=== PATIENT | female | born 1970 | race Asian ===

== ENCOUNTER 2018-04-29 09:21 | Day surgery (SDC) | payer MEDICARE ==
--- NOTE | 2018-04-29 11:45 | Anesthesia Day of Surgery ---
Anesthesia Day of Surgery - Day of Surgery Patient Examined: Yes Patient H&P Reviewed: Yes Patient is NPO: Yes Beta Blockers: No Cardiac Clearance: No Pulmonary Clearance: No
[2018-04-29] MEDS ORDERED: DIPRIVAN 10 MG/ML IV ONE ×2 (11:46)
--- NOTE | 2018-04-29 11:46 | Anesthesia Consultation ---
Anesthesia Consult and Med Hx - Airway Anesthetic Teeth Evaluation: Good ROM Head & Neck: Adequate Mental/Hyoid Distance: Adequate Mallampati Class: Class III Intubation Access Assessment: Good - Pulmonary Exam CTA: Yes - Cardiac Exam Cardiac Exam: No Murmur - Pre-Operative Health Status ASA Pre-Surgery Classification: ASA4 Proposed Anesthetic Plan: MAC - Pulmonary Hx Smoking: No Hx Asthma: No Hx Respiratory Symptoms: No SOB: No COPD: No Home Oxygen Therapy: No Hx Pneumonia: No Hx Sleep Apnea: No - Cardiovascular System Hx Hypertension: Yes Hx Coronary Artery Disease: No Hx Heart Attack/AMI: No Hx Angina: No Hx Percutaneous Transluminal Coronary Angioplasty (PTCA): No Hx Cardia Arrhythmia: No Hx Pacemaker: No Hx Internal Defibrillator: No Hx Valvular Heart Disease: No Hx Heart Murmur: No Hx Peripheral Vascular Disease: No - Central Nervous System Hx Neuromuscular Disorder: No Hx Seizures: No CVA: No Hx Back Pain: No Hx Psychiatric Problems: No - Gastrointestinal Hx Ulcer: No Hx Gastroesophageal Reflux Disease: No - Endocrine Hx Renal Disease: Yes Hx End Stage Renal Disease: Yes Hx Cirrhosis: No Hx Liver Disease: No Hx Insulin Dependent Diabetes: No Hx Non-Insulin Dependent Diabetes: No Hx Thyroid Disease: No Hx Hypothyroidism: No Hx Hyperthyroidism: No - Hematic Hx Anemia: Yes Hx Sickle Cell Disease: No - Other Systems Hx Alcohol Use: No Hx Substance Use: No Hx Cancer: No Hx Obesity: No
[2018-04-29] MEDS ORDERED: NACL 0.9% 1000 ML 1,000 ML IV SCH (12:00)
[2018-04-29] MEDS ORDERED: WATER FOR IRRIG STERILE IR ONE (12:05)
--- NOTE | 2018-04-29 12:24 | Short Stay Summary ---
Short Stay Documentation Date of service: 04/29/18 Narrative H&P: The patient presents for surveillance colonoscopy due to a personal history of colon cancer with surgery a year ago. - History Past Medical History: cancer (colon cancer), dialysis, ESRD, hypertension, hyperlipidemia, other (Lupus) Past Surgical History: bowel surgery (Colon surgery 2010 for colon perforation, right hemicolectomy in 2017 for colon cancer. Hx renal transplant. Tubal ligation) Social history: no significant social history, lives with family, no smoking, no alcohol abuse - Allergies and Medications Current Medications: Allergies amoxicillin [From Augmentin] Allergy (Intermediate, Verified 04/27/18 13:31) Unknown clavulanic acid [From Augmentin] Allergy (Intermediate, Verified 04/27/18 13:31) Unknown latex Allergy (Intermediate, Verified 04/29/18 11:34) Shortness of Breath povidone-iodine [From Betadine] Allergy (Intermediate, Verified 04/29/18 11:34) Itching soap [From Betadine] Allergy (Intermediate, Verified 04/29/18 11:34) Swelling vancomycin Allergy (Intermediate, Verified 04/29/18 11:34) Itching CHILLS STER-STRIPS Allergy (Mild, Uncoded 04/29/18 11:34) Unknown BLISTERS STERI-STRIPS Allergy (Uncoded 04/29/18 11:34) Unknown BLISTERS Home Medications Medication Instructions Recorded Confirmed Last Taken Type Gabapentin 400 mg PO DAILY 04/27/18 04/29/18 04/27/18 History Metoprolol 75 mg PO BID 04/27/18 04/29/18 04/29/18 History NIFEdipine 60 mg PO BID 04/27/18 04/29/18 04/29/18 History Sensipar 30 mg PO DAILY 04/27/18 04/29/18 04/27/18 History hydrALAZINE 50 mg PO TID 04/27/18 04/29/18 04/29/18 History Eliquis 2.5 mg PO DAILY 04/29/18 04/29/18 04/21/18 History Sildenafil 20 mg PO TID 04/29/18 04/29/18 04/27/18 History Active Medications Sodium Chloride (Nacl 0.9% 1000 Ml) 1,000 mls @ 50 mls/hr IV DIRECT MARIA ESTHER Last Admin: 04/29/18 11:54 Dose: 50 mls/hr - Physical exam General appearance: no acute distress, well-nourished Integumentary: no rash, no growths, no abnormal pigmentation HEENT: Atraumatic, PERRLA, EOMI, Mucous membr. moist/pink Lungs: Clear to auscultation, Normal air movement Breasts: deferred Heart: Regular rate, Normal S1, Normal S2, No murmurs Gastrointestinal: normoactive bowel sounds, no tenderness, no distended, no masses, no organomegaly, no hepatomegaly, no splenomegaly, no obese Female Genitourinary: deferred Rectal Exam: normal exam-external/orifice, no mass Extremities: no ischemia, pulses intact, pulses symmetrical, No edema Neurological: Normal gait, Normal speech, Strength at 5/5 X4 ext, Normal tone, Sensation intact, Cranial nerves 3-12 NL - Brief post op/procedure progress note Date of procedure: 04/29/18 Procedure: see dictated report Estimated blood loss: none Pathology: none Condition: stable - Disposition Condition at discharge: Good Disposition: DC-01 TO HOME OR SELFCARE Short Stay Discharge Plan Activity: other (no driving for 24 hours) Weight Bearing Status: Full Weight Bearing Diet: renal Follow up with: BRIANA SOLIS MD [Primary Care Provider] - 7 Days
--- NOTE | 2018-04-29 12:33 | Operative Report ---
Operative Report Operative Report: Date of procedure: 04/29/2018 Preprocedure diagnosis: Personal history of colon cancer with surgery 1 year ago. Post procedure diagnosis: Rectosigmoid anastomosis. Ileocolonic anastomosis. Scattered diverticula of the descending and sigmoid colon. Procedure: Colonoscopy to the cecum Endoscopist: Dr. Galicia Anesthesia: Monitored anesthesia care per anesthesia department Estimated blood loss: 0 Medications: Monitored anesthesia care. See separate report by anesthesia for details. After careful discussion of the nature and purpose of the procedure as well as details of the technique risks benefits and alternatives the patient gave consent. Please see recent history and physical from the office. The patient was placed in the left lateral decubitus position and medicated per anesthesia. A rectal exam was performed sphincter tone was normal there were no masses palpable. The [employer] 570 scope was passed transanally and advanced under continuous direct vision without difficulty to the ileocolonic anastomosis in the right colon. The colon was well prepared. The anastomosis was healthy in appearance. The remaining transverse colon was normal. The descending colon and sigmoid colon reveals scattered diverticula. There was a colocolonic anastomosis present near the rectosigmoid junction consistent with her prior history of colon perforation surgery. The rectum was normal on forward and retroflexed views. The procedure was well-tolerated overall and the patient was observed in recovery. Conclusions: 1. Normal-appearing ileocolonic anastomosis in the right colon. 2. Colocolonic anastomosis in the rectosigmoid area. 3. Diverticulosis of the left colon. Plan: Repeat colonoscopy in 3 years. Family colon screening for first-degree relatives was strongly recommended Signed electronically: Mauricio Galicia M.D.
[2018-04-29 12:46] VITALS: BP 167/80
== END 2018-04-29 09:22 | disposition home or self-care (01) ==
LOC: GIO 09:21
PROVIDERS: ATTEND Internal Medicine Gastroenterology
DX: K57.30 Diverticulosis of large intestine without perforation or abscess without bleeding (principal); I12.0 Hypertensive chronic kidney disease with stage 5 chronic kidney disease or end stage renal disease; N18.6 End stage renal disease; K63.89 Other specified diseases of intestine; E78.00 Pure hypercholesterolemia, unspecified; Z90.49 Acquired absence of other specified parts of digestive tract; Z99.2 Dependence on renal dialysis; Z86.2 Personal history of diseases of the blood and blood-forming organs and certain disorders involving the immune mechanism; Z98.890 Other specified postprocedural states; Z98.51 Tubal ligation status; Z88.6 Allergy status to analgesic agent; Z91.040 Latex allergy status; Z91.09 Other allergy status, other than to drugs and biological substances; Z91.041 Radiographic dye allergy status
CPT/HCPCS: 45378; J2704

== ENCOUNTER 2020-08-02 09:53 | Day surgery (SDC) | payer MEDICARE ==
[~2020-08-02 09:53] MED LIST: LIDOCAINE MPF (2%) 20 MG/1 ML VIAL 5 ML ONE; propofoL 200 MG/20 ML VIAL IV ONE
[2020-08-02] MEDS ORDERED: SODIUM CHLORIDE 0.9% 1000 ML 1,000 ML IV SCH (10:00)
[2020-08-02] MEDS ORDERED: propofoL 200 MG/20 ML VIAL IV ONE (10:44)
--- NOTE | 2020-08-02 10:44 | Anesthesia Consultation ---
Anesthesia Consult and Med Hx Date of service: 08/02/20 - Airway Anesthetic Teeth Evaluation: Good ROM Head & Neck: Adequate Mental/Hyoid Distance: Adequate Mallampati Class: Class I Intubation Access Assessment: Good - Pulmonary Exam CTA: Yes - Cardiac Exam Cardiac Exam: RRR - Pre-Operative Health Status ASA Pre-Surgery Classification: ASA3 Proposed Anesthetic Plan: MAC - Pulmonary Hx Smoking: No Hx Respiratory Symptoms: No Hx Sleep Apnea: No - Cardiovascular System Hx Hypertension: Yes (took antihypertensives this morning) Hx Heart Attack/AMI: No Hx Percutaneous Transluminal Coronary Angioplasty (PTCA): No - Central Nervous System Hx Neuromuscular Disorder: No CVA: Yes (CVA 2018; no deficits) - Endocrine Hx End Stage Renal Disease: Yes (last HD 08/01/20) Hx Liver Disease: No Hx Insulin Dependent Diabetes: No Hx Non-Insulin Dependent Diabetes: No Hx Thyroid Disease: No - Other Systems Hx Obesity: No - Additional Comments Anesthesia Medical History Comments: Hx PONV. Patient states she was started on eliquis for pHTN but was told that this has resolved. Last dose eliquis 07/22/20.
[2020-08-02] MEDS ORDERED: fentaNYL 100 MCG/2 ML INJ ONE (10:52)
--- NOTE | 2020-08-02 11:38 | Short Stay Summary ---
Short Stay Documentation Date of service: 08/02/20 Narrative H&P: The patient presents for surveillance colonoscopy for a history of colon cancer. Her last study was about 3 years ago. - History Past Medical History: ESRD, hypertension, stroke Past Surgical History: appendectomy, cholecystectomy, bowel surgery Social history: no significant social history, lives with family - Allergies and Medications Current Medications: Allergies amoxicillin [From Augmentin] Allergy (Intermediate, Verified 04/27/18 13:31) Unknown clavulanic acid [From Augmentin] Allergy (Intermediate, Verified 04/27/18 13:31) Unknown latex Allergy (Intermediate, Verified 04/29/18 11:34) Shortness of Breath povidone-iodine [From Betadine] Allergy (Intermediate, Verified 04/29/18 11:34) Itching soap [From Betadine] Allergy (Intermediate, Verified 04/29/18 11:34) Swelling vancomycin Allergy (Intermediate, Verified 04/29/18 11:34) Itching CHILLS STER-STRIPS Allergy (Mild, Uncoded 04/29/18 11:34) Unknown BLISTERS STERI-STRIPS Allergy (Uncoded 04/29/18 11:34) Unknown BLISTERS Home Medications Medication Instructions Recorded Confirmed Last Taken Type Gabapentin 400 mg PO DAILY 04/27/18 04/29/18 04/27/18 History Metoprolol 75 mg PO BID 04/27/18 04/29/18 04/29/18 History NIFEdipine 60 mg PO BID 04/27/18 04/29/18 04/29/18 History Sensipar 30 mg PO DAILY 04/27/18 04/29/18 04/27/18 History hydrALAZINE 50 mg PO TID 04/27/18 04/29/18 04/29/18 History Eliquis 2.5 mg PO DAILY 04/29/18 04/29/18 04/21/18 History Sildenafil 20 mg PO TID 04/29/18 04/29/18 04/27/18 History Active Medications Sodium Chloride (Nacl 0.9% 1000 Ml) 1,000 mls @ 50 mls/hr IV DIRECT MARIA ESTHER - Physical exam General appearance: no acute distress, well-nourished Integumentary: no rash, no growths, no abnormal pigmentation HEENT: Atraumatic, PERRLA, EOMI, Mucous membr. moist/pink Lungs: Clear to auscultation, Normal air movement Breasts: deferred Heart: Regular rate, Normal S1, Normal S2, No murmurs Gastrointestinal: normoactive bowel sounds, no tenderness, no distended, no masses, no organomegaly, no obese Female Genitourinary: deferred Rectal Exam: no normal exam-external/orifice, no tenderness Extremities: no ischemia, pulses intact, pulses symmetrical, No edema, normal temperature, normal color, Full ROM Neurological: Normal gait, Normal speech, Strength at 5/5 X4 ext, Normal tone, Sensation intact, Cranial nerves 3-12 NL - Brief post op/procedure progress note Date of procedure: 08/02/20 Procedure: See dictation Estimated blood loss: none Pathology: none Condition: stable - Disposition Condition at discharge: Good Disposition: DC-01 TO HOME OR SELFCARE Short Stay Discharge Plan Activity: other (No driving for 24 horus) Weight Bearing Status: Weight Bear as Tolerated Diet: regular Follow up with: BRIANA SOLIS MD [Other] - 7 Days
--- NOTE | 2020-08-02 11:45 | Operative Report ---
Operative Report Operative Report: Date of procedure: 08/02/2020 Preprocedure diagnosis: History of colon cancer, now for surveillance colonosco py. Last study approximately 3 years ago. Post procedure diagnosis: Right hemicolectomy. Left colon diverticulosis. Anastomosis in the sigmoid colon. Procedure: Colonoscopy to the ileocolonic anastomosis. Endoscopist: Dr. Galicia Anesthesia: Monitored anesthesia care per anesthesia department Estimated blood loss: 0 Medications: Monitored anesthesia care. See separate report by anesthesia for details. After careful discussion of the nature and purpose of the procedure as well as details of the technique risks benefits and alternatives the patient gave consent. Please see recent history and physical from the office. The patient was placed in the left lateral decubitus position and medicated per anesthesia. A rectal exam was performed sphincter tone was normal there were no masses palpable. The [employer] 570 scope was passed transanally and advanced under continuous direct vision without difficulty to the ileocolonic anastomosis the colon was well prepared. The anastomosis was normal in appearance and healthy. This was an end-to-side anastomosis. The transverse colon, descending colon, and sigmoid colon revealed scattered diverticula. There was an end-to-side anastomosis in the sigmoid colon consistent with prior surgery. The anastomosis was normal in appearance and healthy. The rectum was normal on forward and retroflexed views. The procedure was well-tolerated overall and the patient was observed in recovery. Conclusions: No recurrent neoplasia. Status post right hemicolectomy. Diverticulosis. Evidence of prior surgery in the sigmoid colon with an anastomosis being present. Plan: Repeat colonoscopy in 3 years. Signed electronically: Mauricio Galicia M.D.
[2020-08-02] MEDS ORDERED: hydrALAZINE 20 MG/1 ML INJ ONE (11:55)
[2020-08-02] MEDS ORDERED: hydrALAZINE 20 MG/1 ML INJ IV ONE (12:02)
[2020-08-02 12:26] VITALS: BP 159/82
--- NOTE | 2020-08-02 12:59 | Anesthesia Day of Surgery ---
Anesthesia Day of Surgery - Day of Surgery Patient Examined: Yes Patient H&P Reviewed: Yes Patient is NPO: Yes
--- NOTE | 2020-08-02 13:00 | Post Anesthesia Evaluation ---
- Post Anesthesia Evaluation Patient Participated: Yes Airway Patent: Yes Stable Respiratory Function: Yes Nausea/Vomiting: No Temp > 96.8F: Yes Pain Manageable: Yes Adequeate Hydration: Yes Anesthesia Complications: No
== END 2020-08-02 12:40 | disposition home or self-care (01) ==
LOC: GIO 09:53
PROVIDERS: ATTEND Internal Medicine Gastroenterology
DX: Z12.11 Encounter for screening for malignant neoplasm of colon (principal); K57.30 Diverticulosis of large intestine without perforation or abscess without bleeding; I12.0 Hypertensive chronic kidney disease with stage 5 chronic kidney disease or end stage renal disease; N18.6 End stage renal disease; E78.00 Pure hypercholesterolemia, unspecified; Z85.038 Personal history of other malignant neoplasm of large intestine; Z90.49 Acquired absence of other specified parts of digestive tract; Z88.6 Allergy status to analgesic agent; Z91.040 Latex allergy status; Z88.8 Allergy status to other drugs, medicaments and biological substances; Z79.899 Other long term (current) drug therapy; Z98.51 Tubal ligation status; Z99.2 Dependence on renal dialysis; Z86.73 Personal history of transient ischemic attack (TIA), and cerebral infarction without residual deficits
CPT/HCPCS: G0105; J0360; J2704; J3010